=== PATIENT | female | born 1955 | race Two or more races ===

== ENCOUNTER 2018-08-09 09:05 | Day surgery (SDC) | payer BC ==
[2018-08-09] MEDS ORDERED: PROPOFOL 40 ML (10:24)
== END 2018-08-09 13:02 | disposition home or self-care (01) ==
LOC: GIL 09:05
DX: Z12.11 Encounter for screening for malignant neoplasm of colon (principal); K21.9 Gastro-esophageal reflux disease without esophagitis; K29.30 Chronic superficial gastritis without bleeding; K57.90 Diverticulosis of intestine, part unspecified, without perforation or abscess without bleeding; K64.8 Other hemorrhoids; E66.9 Obesity, unspecified; Z68.35 Body mass index [BMI] 35.0-35.9, adult
CPT/HCPCS: 43239; 88305; 88312